=== PATIENT | male | born 1955 | race Caucasian/White ===

== ENCOUNTER 2021-08-28 11:46 | Emergency (ER) | payer BC ==
[~2021-08-28] VITALS: Ht 190.5 cm; Wt 90.9 kg
[2021-08-28 11:52] VITALS: BP 125/80
[2021-08-28] MEDS ORDERED: ibuprofen tablet 400 MG TABLET PO ONE (12:00)
[2021-08-28] MEDS ORDERED: HYDROcodone/acetaminophen 5mg/325mg tablet PO ONE ×2 (12:00→15:15)
[2021-08-28] MEDS ORDERED: OXYC-150 PO (16:40)
== END 2021-08-28 17:23 | disposition home or self-care (01) ==
LOC: ER 11:46
DX: S92.062A Displaced intraarticular fracture of left calcaneus, initial encounter for closed fracture (principal); Z79.899 Other long term (current) drug therapy; W20.8XXA Other cause of strike by thrown, projected or falling object, initial encounter; Y93.89 Activity, other specified; Y92.89 Other specified places as the place of occurrence of the external cause; Y99.8 Other external cause status
CPT/HCPCS: 73610; 73650; 73700; 99284